=== PATIENT | female | born 1940 | race Caucasian/White ===

== ENCOUNTER 2017-07-08 10:31 | Emergency (ER) | payer MEDICARE, OTHER ==
[~2017-07-08] VITALS: Ht 165.1 cm; Wt 72.6 kg
[~2017-07-08 10:31] MED LIST: Hair, Skin & N1 EACH PO; LEVSOD150 PO; LISHYD2025 PO; LISI20 PO
[2017-07-08] MEDS ORDERED: CEFP500 PO (10:48)
[2017-07-08 11:14] LABS: BASOPHILS ABSOLUTE AUTO 0.03 K/mm3 (0.00-0.23); BASOPHILS PERCENT AUTO 0 % (0-2); EOSINOPHILS ABSOLUTE AUTO 0.14 K/mm3 (0.00-0.68); EOSINOPHILS PERCENT AUTO 2 % (0-6); Hematocrit 39.5 % (33.0-51.0); Hemoglobin 12.9 g/dL (11.5-16.0); IMMATURE GRAN ABSOLUTE AUTO 0.03 K/mm3 (0.00-0.10); IMMATURE GRAN PERCENT AUTO 0 % (0-1); LYMPHOCYTES ABSOLUTE AUTO 1.47 K/mm3 (0.84-5.20); LYMPHOCYTES PERCENT AUTO 20 % (21-46); MONOCYTES ABSOLUTE AUTO 0.51 K/mm3 (0.16-1.47); MONOCYTES PERCENT AUTO 7 % (4-13); Mean Corpuscular HGB Conc 32.7 g/dL (31.5-36.5); Mean Corpuscular Volume 92 fL (80-100); Mean Platelet Volume 9.8 fL (9.1-12.4); NEUTROPHILS ABSOLUTE AUTO 5.32 K/mm3 (1.96-9.15); NEUTROPHILS PERCENT AUTO 71 % (41-73); Platelet Count 195 K/mm3 (150-400); RDW Coefficient Variation 13.1 % (11.7-14.2); RDW Standard Deviation 44.4 fL (35.1-46.3)
[2017-07-08 11:51] LABS: Alanine Aminotransfer (ALT/SGP 36 U/L (12-78); Albumin, Blood 3.1 g/dL (3.4-5.0); Albumin/Globulin Ratio 0.9 (0.8-1.8); Alk Phos 62 U/L (50-136); Anion Gap 7 mmol/L (6-16); Aspartate Aminotrans (AST/SGOT 24 U/L (12-37); Bilirubin, Total 0.6 mg/dL (0.1-1.0); Blood Urea Nitrogen 20 mg/dL (8-24); CO2, Blood 33 mmol/L (21-32); Calcium, Blood 7.8 mg/dL (8.5-10.1); Chloride, Blood 101 mmol/L (98-108); Creatinine, Blood 1.05 mg/dL (0.40-1.00); Globulin, Blood 3.5 g/dL (2.2-4.0); Glomerular Filtration Rate 54 (60-); Glucose, Blood 142 mg/dL (70-99); Potassium, Blood 3.1 mmol/L (3.5-5.5); Sodium, Blood 141 mmol/L (136-145); Total Protein, Blood 6.6 g/dL (6.4-8.2); Troponin I <0.015 ng/mL (0.000-0.040)
[2017-07-08] MEDS ORDERED: K-Dur20 MEQ PO (13:16)
== END 2017-07-08 13:22 | disposition home or self-care (01) ==
LOC: ER 10:31
PROVIDERS: Emergency Medicine
DX: R55 Syncope and collapse (principal); E87.6 Hypokalemia; Z88.0 Allergy status to penicillin; Z79.899 Other long term (current) drug therapy
CPT/HCPCS: 71046; 80053; 84484; 85025; 93005; 93010; 99283

== ENCOUNTER 2018-08-08 14:03 | Inpatient (IN) | payer MEDICARE, OTHER ==
[~2018-08-08] VITALS: Ht 162.6 cm; Wt 76.8 kg
[~2018-08-08 14:03] MED LIST changes: +CEFP500 PO; +K-Dur20 MEQ PO
[2018-08-08 14:28] LABS: BASOPHILS ABSOLUTE AUTO 0.02 K/mm3 (0.00-0.23); BASOPHILS PERCENT AUTO 0 % (0-2); EOSINOPHILS PERCENT AUTO 0 % (0-6); Hematocrit 41.4 % (33.0-51.0); Hemoglobin 13.7 g/dL (11.5-16.0); IMMATURE GRAN ABSOLUTE AUTO 0.06 K/mm3 (0.00-0.10); IMMATURE GRAN PERCENT AUTO 1 % (0-1); LYMPHOCYTES ABSOLUTE AUTO 0.42 K/mm3 (0.84-5.20); LYMPHOCYTES PERCENT AUTO 6 % (21-46); MONOCYTES ABSOLUTE AUTO 0.66 K/mm3 (0.16-1.47); MONOCYTES PERCENT AUTO 9 % (4-13); Mean Corpuscular HGB 30.2 pg (26.0-34.0); Mean Corpuscular HGB Conc 33.1 g/dL (31.5-36.5); Mean Corpuscular Volume 91 fL (80-100); Mean Platelet Volume 9.7 fL (9.1-12.4); NEUTROPHILS ABSOLUTE AUTO 6.53 K/mm3 (1.96-9.15); NEUTROPHILS PERCENT AUTO 85 % (41-73); Platelet Count 141 K/mm3 (150-400); RDW Coefficient Variation 12.9 % (11.7-14.2); RDW Standard Deviation 43.3 fL (35.1-46.3); Red Blood Cell Count 4.53 M/mm3 (3.80-5.20); White Blood Cell Count 7.69 K/mm3 (4.00-11.30)
[2018-08-08 14:52] LABS: Albumin, Blood 3.2 g/dL (3.4-5.0); Albumin/Globulin Ratio 0.9 (0.8-1.8); Bilirubin, Total 0.4 mg/dL (0.1-1.0); Bun/Creatinine Ratio 14.5 (12.0-20.0); Calcium, Blood 7.3 mg/dL (8.5-10.1); Creatinine, Blood 1.17 mg/dL (0.40-1.00); Globulin, Blood 3.7 g/dL (2.2-4.0); Potassium, Blood 3.4 mmol/L (3.5-5.5); Total Protein, Blood 6.9 g/dL (6.4-8.2)
[2018-08-08 15:43] LABS: Source, Urine Catheter
[2018-08-08] MEDS ORDERED: LEVSOD125 PO (15:47)
[2018-08-08] MEDS ORDERED: AMLO5 PO (15:47)
[2018-08-08 15:51] LABS: Blood, Urine 4+ (Neg); Glucose Qualitative, Urine Neg (Neg); Ketones, Urine 2+ (Neg); Leukocyte Esterase, Urine 3+ (Neg); Nitrite, Urine Neg (Neg); Protein, Urine 3+ (Neg); Urobilinogen, Urine 1+ (Normal); pH, Urine 6.5 (5.0-8.0)
[2018-08-08 16:02] LABS: Bilirubin, Urine 2+ (Neg)
[2018-08-08 16:03] LABS: Appearance, Urine Hazy (Clear); Color, Urine Yellow (P-Yellow); Squamous Epithelial Cells Mod /hpf (Few)
[2018-08-08 16:04] LABS: Bacteria Mod /hpf; White Blood Cells, Urine 25-50 /hpf (0-5)
[2018-08-08 18:40] LABS: Troponin I 0.044 ng/mL (0.000-0.040)
[2018-08-08 18:41] LABS: Thyroid Stimulating Hormone <0.005 uIU/mL (0.360-4.800)
[2018-08-08 23:00] LABS: Adenovirus Not Detected (NOT DETECT); Bordetella pertussis Not Detected (NOT DETECT); Chlamydophila pneumoniae Not Detected (NOT DETECT); Coronavirus 229E Not Detected (NOT DETECT); Coronavirus HKU1 Not Detected (NOT DETECT); Coronavirus NL63 Not Detected (NOT DETECT); Coronavirus OC43 Not Detected (NOT DETECT); Human Metapneumovirus Not Detected (NOT DETECT); Human Rhinovirus/Enterovirus Not Detected (NOT DETECT); Influenza A Not Detected (NOT DETECT); Influenza A/2009-H1 Not Detected (NOT DETECT); Influenza A/H1 Not Detected (NOT DETECT); Influenza A/H3 Not Detected (NOT DETECT); Influenza B Not Detected (NOT DETECT); Mycoplasma pneumoniae Not Detected (NOT DETECT); Parainfluenza Virus 1 Not Detected (NOT DETECT); Parainfluenza Virus 2 Not Detected (NOT DETECT); Parainfluenza Virus 3 Not Detected (NOT DETECT); Parainfluenza Virus 4 Not Detected (NOT DETECT); Respiratory Syncytial Virus Not Detected (NOT DETECT)
[2018-08-09 04:16] LABS: BASOPHILS ABSOLUTE AUTO 0.01 K/mm3 (0.00-0.23); BASOPHILS PERCENT AUTO 0 % (0-2); EOSINOPHILS PERCENT AUTO 0 % (0-6); Hematocrit 40.3 % (33.0-51.0); Hemoglobin 13.2 g/dL (11.5-16.0); IMMATURE GRAN ABSOLUTE AUTO 0.03 K/mm3 (0.00-0.10); IMMATURE GRAN PERCENT AUTO 1 % (0-1); LYMPHOCYTES ABSOLUTE AUTO 0.76 K/mm3 (0.84-5.20); LYMPHOCYTES PERCENT AUTO 15 % (21-46); MONOCYTES ABSOLUTE AUTO 0.47 K/mm3 (0.16-1.47); MONOCYTES PERCENT AUTO 9 % (4-13); Mean Corpuscular HGB 30.5 pg (26.0-34.0); Mean Corpuscular HGB Conc 32.8 g/dL (31.5-36.5); Mean Corpuscular Volume 93 fL (80-100); Mean Platelet Volume 9.5 fL (9.1-12.4); NEUTROPHILS ABSOLUTE AUTO 3.88 K/mm3 (1.96-9.15); NEUTROPHILS PERCENT AUTO 75 % (41-73); Platelet Count 118 K/mm3 (150-400); RDW Standard Deviation 44.8 fL (35.1-46.3); Red Blood Cell Count 4.33 M/mm3 (3.80-5.20); White Blood Cell Count 5.15 K/mm3 (4.00-11.30)
[2018-08-09 04:53] LABS: Albumin, Blood 2.8 g/dL (3.4-5.0); Albumin/Globulin Ratio 0.8 (0.8-1.8); Bilirubin, Total 0.4 mg/dL (0.1-1.0); Bun/Creatinine Ratio 11.5 (12.0-20.0); Calcium, Blood 6.5 mg/dL (8.5-10.1); Creatinine, Blood 1.04 mg/dL (0.40-1.00); Globulin, Blood 3.4 g/dL (2.2-4.0); Total Protein, Blood 6.2 g/dL (6.4-8.2)
--- NOTE | 2018-08-09 06:43 | NUR ---
END OF SHIFT JOSE ASSUMED CARE OF PT @ 1900. ADMISSION ASSESMENT6 COMPLETED. PT HAS FLUIDS RUNNING, SEPSIS PROTOCOL FLUID ORDERS JUST ENTERED. PT NS TITRATED PER EMAR. 2300L NS GIVEN PER EMAR. FLUIDS NOW INFUSING AT 125ML/HR AND HAS CONTINUED TO INFUSE. PT'S SON AT BEDSIDE FOR MAJORITY OF NIGHT. BIG BUMP NOTED ON BACK OF PATIENTS HEAD, PT'S SON SAID PT FELL PRIOR TOP ADMISSION. DR OQUENDO CALLED REGARDING OBTAINING HEAD CT. CT COMPLETED, NEGATIVE FOR HEMORRHAGE. PT HAS SLEPT FOR MAJORITY OF NIGHT. VSS T/O SHIFT. PT HAS BEEN FEBRILE, MEDICATED WITH TYLENOL. FEVER REDUCED <100. PT HAS VOICED LITTLE COMPLAINT. YESTERDAY AM, 08/08/18. PT SPEAKS FONDLY OF LATE , APPEARS TO BE COPING WELL AT THIS TIME WITH LOSS. WILL CONTINUE TO MONITOR PT UNTIL SHIFT CHANGE.
[2018-08-10 05:04] LABS: BASOPHILS ABSOLUTE AUTO 0.01 K/mm3 (0.00-0.23); BASOPHILS PERCENT AUTO 0 % (0-2); EOSINOPHILS PERCENT AUTO 0 % (0-6); Hematocrit 39.2 % (33.0-51.0); Hemoglobin 12.9 g/dL (11.5-16.0); IMMATURE GRAN ABSOLUTE AUTO 0.02 K/mm3 (0.00-0.10); IMMATURE GRAN PERCENT AUTO 0 % (0-1); LYMPHOCYTES ABSOLUTE AUTO 0.72 K/mm3 (0.84-5.20); LYMPHOCYTES PERCENT AUTO 14 % (21-46); MONOCYTES ABSOLUTE AUTO 0.23 K/mm3 (0.16-1.47); MONOCYTES PERCENT AUTO 5 % (4-13); Mean Corpuscular HGB 29.9 pg (26.0-34.0); Mean Corpuscular HGB Conc 32.9 g/dL (31.5-36.5); Mean Corpuscular Volume 91 fL (80-100); Mean Platelet Volume 9.9 fL (9.1-12.4); NEUTROPHILS ABSOLUTE AUTO 4.06 K/mm3 (1.96-9.15); NEUTROPHILS PERCENT AUTO 81 % (41-73); Platelet Count 97 K/mm3 (150-400); RDW Coefficient Variation 13.1 % (11.7-14.2); RDW Standard Deviation 44.7 fL (35.1-46.3); Red Blood Cell Count 4.31 M/mm3 (3.80-5.20); White Blood Cell Count 5.04 K/mm3 (4.00-11.30)
[2018-08-10 05:26] LABS: Albumin, Blood 2.5 g/dL (3.4-5.0); Albumin/Globulin Ratio 0.8 (0.8-1.8); Bilirubin, Total 0.4 mg/dL (0.1-1.0); Bun/Creatinine Ratio 7.8 (12.0-20.0); Calcium, Blood 6.6 mg/dL (8.5-10.1); Creatinine, Blood 1.16 mg/dL (0.40-1.00); Potassium, Blood 2.6 mmol/L (3.5-5.5); Total Protein, Blood 5.5 g/dL (6.4-8.2); Troponin I 0.086 ng/mL (0.000-0.040)
--- NOTE | 2018-08-10 06:10 | NUR ---
PCU NOC SHIFT SUMMARY PATIENT ALERT AND ORIENTED AT TIMES T/O SHIFT. PATIENT CONFUSED INTERMITTENTLY WITH FEVERS. PATIENT MEDICATED PER EMAR AND USED COOLING MEASURES TO BRING FEVER DOWN WITH COOL WASH CLOTH AND FAN. PATIENT HYPERTENSIVE AND FEBRILE T/O SHIFT. HR REMAINED STABLE IN SINUS RHYTHM IN THE 80-90'S. NO ACUTE EVENTS BEYOND THE FEVERS AND HYPERTENSION NOTED. PATIENT SLEPT WITH SPOUSE (WHO PASSED) JACKET IN BED WITH HER. IV FLUIDS RUNNING T/O SHIFT PER EMAR. PATIENT HAVING SEEDY STOOLS X3 THIS SHIFT. BED ALARM ON, CALL LIGHT W/I REACH. WILL CONTINUE TO MONITOR AND GIVE REPORT TO DAYSHIFT RN.
--- NOTE | 2018-08-10 06:24 | NUR ---
MD NARANJO NOTIFIED OF LABS POTASSIUM 2.6 - ORDERS GIVEN TROPONIN 0.088 - NO NEW ORDERS AT THIS TIME
--- NOTE | 2018-08-10 12:04 | NUR ---
Echocardiogram completed.
--- NOTE | 2018-08-10 12:09 | NUR ---
Spiritual care visit conducted. I met with patient's daughter Caroline in the hallway outside patient's room. Caroline shared about of patient's spouse days ago, about patient's current medical issuess and about patient's limited scientology background. I entered patient's room with Caroline and step son Manuel, and knelt by patient while she was lying in bed resting. Patient is lathargic yet can carry on a brief conversation. Patient agreed that she has a little fight left and that she'll be ok. Patient was a bit tearful about her but is not inappropriate in her grief. I reinforced helpful attitudes and practices, explored sources of meaning, provided grief support and provided prayer. Patient responded well and showed signs of increased hope and of being comforted. I will continue to remain available to patient and family.
--- NOTE | 2018-08-10 13:04 | NUR ---
Assumed care of pt at approx 0700 from ALON Jang. Pt resting in bed, presenting with flat affect and appears lethargic. Pt opens eyes to sound but rests in bed with eyes closed. Family at bedside this shift. Pt orientedx4, denies chest pain and denies chest pressure. pt denies general pain at this time. Lungs clear and dim to bilat bases. Hypertensive and tachypneic and hyperthermic. Pt with elevated temp all night and continued elevated temp throughout this shift. Dr. Gibson aware. Elevated trop drawn this am. Serial trop ordered from Dr. Gibson, Echo ordered and EKG ordered per dr. Gibson. Echo completed and EKG completed. Cardiology consulted and awaiting Dr. Barnes to see pt. Pt not eating, see by dietary. Plan to encourage Pt to consume chocolate ensure. Pt becoming increasingly weaker this shift. At 0800, pt able to stand and walk to bathroom to void, as of 1100, pt states she is too weak to walk to bathroom and needs bsc.
--- NOTE | 2018-08-10 16:40 | NUR ---
Pt was apparently sleeping when I entered the room to administer her IVPB antibiotic. She awakened easily to gentle stimuli. Denies pain, denies difficulty breathing. STates, "I'm just tired." She closes her eyes readily, and appears to go back to sleep.
--- NOTE | 2018-08-10 16:42 | NUR ---
Shift Summary Pt with elevated troponin today. Cardiac work-up ordered by Dr. Gibson. Echo performed this AM, EKG done at 1100 and will be done again at 1705. Dr Barnes consulted and saw pt this morning. Stress test lexiscan ordered per Dr. Barnes and will be 1 day protocol on Thrusday, 08/12/18 d/t imaging system down on 08/11/18. Troponin trending down at this time. No c/o chest pain or pressure at this time. No c/o SOB. Pt very lethargic today. She does not open her eyes unless spoken to. Pt responds appropriately, has mild confusion intermittantly throughout shift. Pt with elevated temperature trending down. Cool therapy in place and pt tolerating well. Pt daughter at bedside from 0800 until 1500 today. Pt daughter would like to limit visitors who are not family d/t pt exhaustion. Nurses on PCU notified to ask any non-family visitors to visit a different time. Sign to see RN in place on door. ABX tx continued this shift. IV patent and infusing at this time. Will continue to monitor and update as appropriate until shift change.
[2018-08-11 04:38] LABS: Hematocrit 35.7 % (33.0-51.0); Hemoglobin 11.9 g/dL (11.5-16.0); Mean Corpuscular HGB 30.1 pg (26.0-34.0); Mean Corpuscular HGB Conc 33.3 g/dL (31.5-36.5); Mean Corpuscular Volume 90 fL (80-100); Mean Platelet Volume 10.9 fL (9.1-12.4); Platelet Count 85 K/mm3 (150-400); RDW Coefficient Variation 13.4 % (11.7-14.2); Red Blood Cell Count 3.95 M/mm3 (3.80-5.20); White Blood Cell Count 4.55 K/mm3 (4.00-11.30)
[2018-08-11 05:20] LABS: BAND PERCENT MAN 1 % (0-8); BASOPHILS PERCENT MAN 0 % (0-2); EOSINOPHILS PERCENT MAN 0 % (0-6); LYMPHOCYTES ABSOLUTE MAN 0.45 K/mm3 (0.84-5.20); LYMPHOCYTES PERCENT MAN 10 % (21-46); MONOCYTES ABSOLUTE MAN 0.09 K/mm3 (0.16-1.47); MONOCYTES PERCENT MAN 2 % (4-13); SEG NEUTROPHILS PERCENT MAN 87 % (41-73); TOTAL CELLS COUNTED 100
--- NOTE | 2018-08-11 06:52 | NUR ---
PCU NOC SHIFT SUMMARY PATIENT LETHARGIC T/O SHIFT, ANSWERING QUESTIONS YES OR NO INAPPROPRIATELY DUE TO LETHARGY. PATIENTS VSS - 2 LPM NC APPLIED TO PATIENT DUE TO DESATURATION IN TO 87% ON ROOM AIR. HR REMAINED IN NSR WITH NO ACUTE EVENTS NOTED. PATIENT DENIES PAIN T/O SHIFT. PATIENT FEBRILE T/O SHIFT - TREATED PER EMAR. WILL CONTINUE TO MONITOR AND REPORT TO DAYSHIFT RN.
[2018-08-11 09:39] LABS: Bun/Creatinine Ratio 13.4 (12.0-20.0); Calcium, Blood 6.4 mg/dL (8.5-10.1); Creatinine, Blood 1.34 mg/dL (0.40-1.00); Potassium, Blood 3.2 mmol/L (3.5-5.5)
--- NOTE | 2018-08-11 12:49 | NUR ---
Assumed care of pt at approx 0700 from LAON Herrera. Pt alert and oriented this morning. VSS and pt in no apparent sign of distress. pt states "is it Thursday?" pt reoriented to date, pt states she does not remember the past two days. Today, pt able to ambulate with assistance to bathroom. Pt with soiled depends x2 with seedy, loose stool. Skin care performed, linins and gown changed as needed. Pt down to imaging this am for repeat chest xray. Dr. Joetrate in with pt this morning, plan is to continue abx tx and keep cardiology involved in care. Stress test scheduled for tomorrow, 08/12. Multiple friends and family in this morning to visit with pt. Pt appropriate and with enough energy to visit in short bursts throughout morning.
--- NOTE | 2018-08-11 18:19 | NUR ---
No acute changes this shift. VSS. Pt appears to be improving compared to yesterday shift. Pt more alert and oriented today. Pt gradually became increasingly more tired and forgetful as shift progressed; sign placed on door for visitors to see RN before entering room to decrease traffic in room and allow pt to rest and sleep. pt remains oriented all shift, motor strength remained consistant, no signs of neurological changes present. Pt ate very little again this shift, but increasing PO fluid intake. Pt continued ABX tx. Ambulated to bathroom for each void. Pt with loose stool all shift, pt stool incont. skin cleanse and pericare performed after each void. Pt temp trending down. Pt likes her late husbands jacket to be placed over her chest at all times. Will continue to monitor and update as appropriate.
--- NOTE | 2018-08-11 19:20 | NUR ---
OPENING NOTE RECEIVED REPORT FROM ALONZO CHI AT THE BEDSIDE AND ASSUMED PT CARE. PT IS RESTING QUIETLY, OPENS EYES TO VOICE, DENIES COMPLAINTS AT THIS TIME AND STATES "I'M DOING BETTER TODAY". PARTICIPATES IN BEDSIDE REPORT. VSS, SEE ASSESSMENT FOR DETAILS. BED ALARM ON AND BELONGINGS IN REACH. WILL MONITOR AND CONTINUE PLAN OF CARE.
--- NOTE | 2018-08-12 01:30 | NUR ---
0130: RECEIVED REPORT FROM COMMERCIAL TECHNICIAN AND ASSUMED CARE OF PT. WHITE BOARD UPDATED, CALL LIGHT IN REACH.
[2018-08-12 05:18] LABS: Hematocrit 41.7 % (33.0-51.0); Hemoglobin 13.6 g/dL (11.5-16.0); Mean Corpuscular HGB 29.8 pg (26.0-34.0); Mean Corpuscular HGB Conc 32.6 g/dL (31.5-36.5); Mean Corpuscular Volume 91 fL (80-100); Mean Platelet Volume 11.4 fL (9.1-12.4); Platelet Count 84 K/mm3 (150-400); RDW Coefficient Variation 13.5 % (11.7-14.2); RDW Standard Deviation 46.2 fL (35.1-46.3); Red Blood Cell Count 4.56 M/mm3 (3.80-5.20)
[2018-08-12 05:55] LABS: Albumin, Blood 2.3 g/dL (3.4-5.0); Albumin/Globulin Ratio 0.7 (0.8-1.8); Bilirubin, Total 0.3 mg/dL (0.1-1.0); Bun/Creatinine Ratio 14.4 (12.0-20.0); Creatinine, Blood 1.11 mg/dL (0.40-1.00); Globulin, Blood 3.5 g/dL (2.2-4.0); Potassium, Blood 3.2 mmol/L (3.5-5.5); Total Protein, Blood 5.8 g/dL (6.4-8.2)
[2018-08-12 06:17] LABS: BAND PERCENT MAN 4 % (0-8); BASOPHILS PERCENT MAN 0 % (0-2); EOSINOPHILS PERCENT MAN 0 % (0-6); LYMPHOCYTES PERCENT MAN 17 % (21-46); MONOCYTES ABSOLUTE MAN 0.17 K/mm3 (0.16-1.47); MONOCYTES PERCENT MAN 3 % (4-13); NEUTROPHILS ABSOLUTE MAN 4.72 K/mm3 (1.96-9.15); SEG NEUTROPHILS PERCENT MAN 76 % (41-73); TOTAL CELLS COUNTED 100
--- NOTE | 2018-08-12 09:58 | NUR ---
The pt was taken down to imaging dept for pictures after the first portion of the stress test. She sounded wheezy audibly during the stand and transfer to sit in the wheelchair; upon return the audible wheezes had dissipated. During the activity she had no visible respiratory difficulty nor complaints of the same. She was encouraged to sit up in the recliner, but she declines, states that she is cold and would like to go back to bed. She is distant, withdrawn, and minimally conversant, although appropriate in her responses. However, she is slow to respond to simple commands at times, seeming "shell-shocked".
--- NOTE | 2018-08-12 13:12 | NUR ---
Assumed care of pt at approx 0700. Pt lethargic at first encounter, vss except tachypnea. O2 saturations 91% on RA. Pt in no apparent sign of distress. Pt opens eyes to verbal, but otherwise lays in bed with eyes closed. Pt minimally conversive today, does not open eyes unless instructed to. Pt slow to respond but responds to questions appropriately. No facial droop noted, no sudden weakness noted. Pt presents very withdrawn today. Pt states "I am tired". Encouraged pt to sit in recliner but pt refused. Encouraged pt to eat, but only consumed 3 small bites of cheese. Pt consumed 500 ml water PO. Pt ambulated to bathroom at approx 1150 with stated weakness, but steady gait accompanied by CLAIM ADJUSTER and this RN. Pt voided then states she was "too weak" to stand and walk back to bed. Pt then became limp, maintained consciousness, was able to state name and date of approrpiately and answer orientation questions appropriately. Pt followed directions appropriately when stated to "look up at me" and "open your eyes". pt wheeled back to bed via wheelchair accompanied by this RN, chargeback analyst, and CLAIM ADJUSTER. CBG assessed and was 110. VS as followed: 87% on RA, 110/57 bp, 76 hr, 98.8 temporal temp. Pt placed on 4L o2 with sat improvement to 95%. Dr Gibson notifed of event, Head CT w/o contrast ordered and obtained, 500cc bolus of NS ordered and given per orders. Will continue to monitor and update as appropriate
[2018-08-12 16:06] LABS: BASOPHILS ABSOLUTE AUTO 0.02 K/mm3 (0.00-0.23); BASOPHILS PERCENT AUTO 0 % (0-2); EOSINOPHILS PERCENT AUTO 0 % (0-6); Hematocrit 37.5 % (33.0-51.0); Hemoglobin 12.4 g/dL (11.5-16.0); Mean Corpuscular HGB Conc 33.1 g/dL (31.5-36.5); Mean Corpuscular Volume 91 fL (80-100); Mean Platelet Volume 10.6 fL (9.1-12.4); Platelet Count 79 K/mm3 (150-400); RDW Coefficient Variation 13.7 % (11.7-14.2); RDW Standard Deviation 46.4 fL (35.1-46.3); Red Blood Cell Count 4.14 M/mm3 (3.80-5.20)
[2018-08-12 16:10] LABS: IMMATURE GRAN ABSOLUTE AUTO 0.08 K/mm3 (0.00-0.10); IMMATURE GRAN PERCENT AUTO 1 % (0-1); LYMPHOCYTES ABSOLUTE AUTO 0.95 K/mm3 (0.84-5.20); LYMPHOCYTES PERCENT AUTO 14 % (21-46); MONOCYTES ABSOLUTE AUTO 0.28 K/mm3 (0.16-1.47); MONOCYTES PERCENT AUTO 4 % (4-13); NEUTROPHILS ABSOLUTE AUTO 5.27 K/mm3 (1.96-9.15); NEUTROPHILS PERCENT AUTO 80 % (41-73)
--- NOTE | 2018-08-12 18:48 | NUR ---
Pt recieved total of 1000L bolus (two 500L bolus) today for hypotension. Pt started on Levoquin, and mosley cath in place per dr. gibson orders. Pt bp improved to 133/63 and 88 pulse after second 500L bolus and after mosley cath placement. Pt still non conversational, still laying in bed with eyes closed, still very lethargic. Pt opens eyes at verbal command, and follows simple directions. Sometimes pt response is inapporpriate, for example, this RN asked pt for her and pt responded with her street address. This RN asked again, for her , and she responded appropriately and accurately. Dr Gibson aware of mentation change and BP change this shift. Daughter, Caroline, updated of pt condition at 1840. Caroline would like to be made aware of results from CT and stress test. Will continue to monitor and update as appropriate.
--- NOTE | 2018-08-13 00:21 | NUR ---
WHEN ASKED HOW SHE IS FEELING, SHE STATES, I DON'T KNOW, I GUESS THIS IS MY NEW NORMAL. NURSING STATED THAT THIS IS A NEW NORMAL, BUT IT IS OK TO MISS THE OLD NORMAL. TO THIS SHE SMILES AND REACHES OUT TO HOLD NURSINGS HAND. SAFETY MEASURES IN PLACE. WILL CONTINUE TO MONITOR.
[2018-08-13 04:02] LABS: Hematocrit 39.3 % (33.0-51.0); Mean Corpuscular HGB 29.7 pg (26.0-34.0); Mean Corpuscular HGB Conc 33.1 g/dL (31.5-36.5); Mean Corpuscular Volume 90 fL (80-100); Platelet Count 80 K/mm3 (150-400); RDW Coefficient Variation 13.4 % (11.7-14.2); RDW Standard Deviation 44.4 fL (35.1-46.3); Red Blood Cell Count 4.38 M/mm3 (3.80-5.20); White Blood Cell Count 5.51 K/mm3 (4.00-11.30)
--- NOTE | 2018-08-13 04:11 | NUR ---
REPOSITIONED FOR COMFORT. IS IN BETTER SPIRITS THIS AM. CALM AND COOPERATIVE. REACHES FOR NURSINGS HANDS TO HOLD. WHEN STATED THAT SHE APPEARS MORE VIBRANT THIS AM, SHE SAYS THAT SHE FEELS BETTER, BUT NOT WELL. NURSING PRAISED HER FOR HER ACCOMPLISHMENTS, SHE RESPONDS WITH SQUEEZING NURSINGS HANDS AND SMILING.
[2018-08-13 04:19] LABS: Alanine Aminotransfer (ALT/SGP 70 U/L (12-78); Albumin/Globulin Ratio 0.6 (0.8-1.8); Alk Phos 50 U/L (50-136); Anion Gap 8 mmol/L (6-16); Aspartate Aminotrans (AST/SGOT 119 U/L (12-37); Bilirubin, Direct 0.1 mg/dL (0.0-0.3); Bilirubin, Indirect 0.2 mg/dL (0.1-0.7); Bilirubin, Total 0.3 mg/dL (0.1-1.0); Blood Urea Nitrogen 14 mg/dL (8-24); Bun/Creatinine Ratio 13.2 (12.0-20.0); CO2, Blood 28 mmol/L (21-32); Calcium, Blood 6.7 mg/dL (8.5-10.1); Chloride, Blood 102 mmol/L (98-108); Creatinine, Blood 1.06 mg/dL (0.40-1.00); Globulin, Blood 3.4 g/dL (2.2-4.0); Glomerular Filtration Rate 53 (60-); Glucose, Blood 77 mg/dL (70-99); Phosphorus, Blood 2.5 mg/dL (2.5-4.9); Potassium, Blood 2.9 mmol/L (3.5-5.5); Sodium, Blood 138 mmol/L (136-145); Total Protein, Blood 5.4 g/dL (6.4-8.2)
[2018-08-13 05:41] LABS: BASOPHILS PERCENT MAN 0 % (0-2); EOSINOPHILS ABSOLUTE MAN 0.05 K/mm3 (0.00-0.68); EOSINOPHILS PERCENT MAN 1 % (0-6); LYMPHOCYTES ABSOLUTE MAN 0.66 K/mm3 (0.84-5.20); LYMPHOCYTES PERCENT MAN 12 % (21-46); MONOCYTES ABSOLUTE MAN 0.16 K/mm3 (0.16-1.47); MONOCYTES PERCENT MAN 3 % (4-13); NEUTROPHILS ABSOLUTE MAN 4.62 K/mm3 (1.96-9.15); SEG NEUTROPHILS PERCENT MAN 84 % (41-73); TOTAL CELLS COUNTED 100
--- NOTE | 2018-08-13 06:19 | NUR ---
LYING IN SEMI FOWLERS WITH EYES CLOSED. NO FURTHER CHANGES SINCE START OF SHIFT. DEINES FURTHER NEEDS OR WANTS AT THIS TIME. SPIRITS CONTINUE TO LIFT. SAFETY MEASURES IN PLACE. WILL GIVE HAND OFF TO ONCOMING SHIFT USING SBAR.
--- NOTE | 2018-08-13 09:00 | NUR ---
INITIAL ASSESSMENT: PT IS RESTING WITH EYES CLOSED, RESP E/U. DAUGHTER AT BEDSIDE. PT EASILY AWAKENS WITH VERBAL STIMULI. PT IS ALERT AND OX3. PT HAS FLAT AFFECT. PT REPORTS SHE IS HAVING A 4/10 PAIN ON HER BUTTOCKS. PT STATES SHE HAS BEEN HAVING ALOT OF DIARRHEA AND HER BOTTOM IS RAW. HRR, SR WITH PAC'S AND PVC'S PER TELEMETRY. LS DIM T/O. BIOX WNL ON 2L VIA NC. PT REPORTS DRY NPC. BT HYPERACTIVE, PT HAS BEEN HAVING WATERY DIARRHEA. PPP. NO EDEMA PRESENT AT THIS TIME. VSS. ULTRASOUND AT BEDSIDE AT THIS TIME. PT DENIES NEEDS, WILL CONTINUE TO MONITOR.
--- NOTE | 2018-08-13 10:30 | NUR ---
PT WAS ASSISTED TO DANGLE, PT STATES SHE IS FEELING, " A LITTLE LIGHT HEADED." PT SITTING ON THE EDGE OF THE BED FOR APPROX 3-4 MIN. PT APPLICATIONS PROJECT MANAGER TO ASSIST THIS RN AND PT TO STAND. PT WAS ABLE TO STAND FOR APPROX 5 SECONDS BEFORE SHE STATED SHE NEEDED TO "SIT DOWN SOON." PT ASSISTED TO SIT ON THE EDGE OF THE BED. VS WERE CHECKED AND BP DIDN'T DROP SIGNIFICANTLY, VS REMAINED WNL. PT ASSISTED TO LIE DOWN. LINENS WERE CHANGED AND BED BATH WAS GIVEN. PT DENIES FURTHER NEEDS AT THIS TIME. CALL LIGHT IN REACH.
--- NOTE | 2018-08-13 10:56 | NUR ---
Upon receiving a request from patient's RN, I entered patient's room. Patient shares about the loss of her , about her own health challenges and about her emotional struggles. I provided grief support and emotional support. I facilitaed a brief life review, established therapeutic alliance and provided prayer. Patient responded well and showed signs of increased hope. I also spent some time with patient's daughter, Caroline in the hallway just outside patient's room and allowed her some space to share her struggle and talk about the loss of her step father, her way of processing grief and the plan, moving forward, with the patient. I listened empathically, provided grief support and encouraged self care. I continue to remain available to patient and family.
--- NOTE | 2018-08-13 11:00 | NUR ---
ASSESSMENT IS UNCHANGED FROM EARLIER. PT WAS CLEANED UP EARLIER, PTS BUTTOCKS AND [place]A EXCORIATED. PT ENCOURAGED TO CALL US WHEN SHE HAS DIARRHEA SO THAT HER SKIN WON'T BE EXPOSED TO STOOL FOR LONG PERIODS OF TIME. WILL ASSESS FOR STOOL WITH HOURLY ROUNDING. VSS. DR. ALMONTETRATE AT THE BEDSIDE TO ASSESS PT AND TALK WITH FAMILY RE:PLAN OF CARE. MD ORDERED MEDICATIONS FOR DIARRHEA PER RN REQUEST. PT IS EATING SMALL AMOUNTS OF MEALS, PT ENCOURAGED TO INCREASE PO INTAKE. PT DENIES FURTHER NEEDS AT THIS TIME, CALL LIGHT IN REACH, WILL CONTINUE TO MONITOR.
--- NOTE | 2018-08-13 15:30 | NUR ---
ASSESSMENT UNCHAGED FROM EARLIER. PT WAS ABLE TO AMBULATE PT TO THE BATHROOM WITH NO SYNCOPAL EPISODES. VSS. MEDS GIVEN. PT DENIES OTHER NEEDS AT THIS TIME, CALL LIGHT IN REACH.
--- NOTE | 2018-08-13 18:38 | NUR ---
PT HAS DONE WELL TODAY. SHE HAS BEEN ABLE TO AMBULATE TO BATHROOM WITH ASSISTANCE WITHOUT A SYNCOPAL EPISODES. VSS T/O THE SHIFT. NO ACUTE CHANGES THIS SHIFT, WILL REPORT TO ONCOMING RN.
[2018-08-14 04:17] LABS: Hematocrit 36.9 % (33.0-51.0); Hemoglobin 12.1 g/dL (11.5-16.0); Mean Corpuscular HGB 29.4 pg (26.0-34.0); Mean Corpuscular HGB Conc 32.8 g/dL (31.5-36.5); Mean Corpuscular Volume 90 fL (80-100); Mean Platelet Volume 10.7 fL (9.1-12.4); Platelet Count 124 K/mm3 (150-400); RDW Coefficient Variation 13.9 % (11.7-14.2); RDW Standard Deviation 45.2 fL (35.1-46.3); Red Blood Cell Count 4.11 M/mm3 (3.80-5.20); White Blood Cell Count 5.77 K/mm3 (4.00-11.30)
[2018-08-14 04:41] LABS: Albumin, Blood 1.9 g/dL (3.4-5.0); Albumin/Globulin Ratio 0.5 (0.8-1.8); Bilirubin, Total 0.3 mg/dL (0.1-1.0); Bun/Creatinine Ratio 9.3 (12.0-20.0); Calcium, Blood 6.9 mg/dL (8.5-10.1); Creatinine, Blood 1.07 mg/dL (0.40-1.00); Globulin, Blood 3.5 g/dL (2.2-4.0); Potassium, Blood 3.1 mmol/L (3.5-5.5); Total Protein, Blood 5.4 g/dL (6.4-8.2)
[2018-08-14 05:19] LABS: BASOPHILS PERCENT MAN 0 % (0-2); EOSINOPHILS PERCENT MAN 0 % (0-6); LYMPHOCYTES % ATYPICAL MANUAL 1 % (0-0); LYMPHOCYTES ABSOLUTE MAN 0.86 K/mm3 (0.84-5.20); LYMPHOCYTES PERCENT MAN 14 % (21-46); MONOCYTES PERCENT MAN 7 % (4-13); SEG NEUTROPHILS PERCENT MAN 78 % (41-73); TOTAL CELLS COUNTED 100
--- NOTE | 2018-08-14 09:15 | NUR ---
INITIAL ASSESSMENT: PT IS RESTING IN BED WITH EYES CLOSED, EASILY AWAKENS WITH VERBAL STIMULI. PT IS ALERT AND OX3. PT REPORTS SHE IS HAVING MINIMAL PAIN ON HER BUTTOCKS. HRR. LS DIM WITH EXP WHEEZING, BIOX WNL ON 3L VIA NC. BT+, PT STATES SHE HASN'T HAD ANY DIARRHEA SINCE YESTERDAY. PPP. VSS. SOME AM MEDS GIVEN, PT GOT A PILL STUCK IN HER THROAT, PT WAS ABLE TO PASS PILL AND RECOVER NICELY. PT REQUESTED A BREAK FROM TAKING PILLS, I DISCUSSED WITH HER I WOULD GIVE HER A BREAK AND CHECK BACK IN ABOUT AN HOUR. ISTRATE IN TO SEE PATIENT, SEE NEW ORDERS. PT DENIES OTHER NEEDS AT THIS TIME. CALL LIGHT IN REACH.
--- NOTE | 2018-08-14 10:57 | NUR ---
PT TO WORK WITH PATIENT, PT REQUESTING TO SIT UP IN CHAIR. BED ALARM PLACED PER PT. WILL CONTINUE TO MONTIOR.
--- NOTE | 2018-08-14 15:23 | NUR ---
ASSUMED PATIENT CARE, PT RESTING, NO OTHER CONCERNS AT THIS TIME. BED IN LOW POSITION,C ALL LITEIN REACH, FRIEND AT BEDSIDE.
--- NOTE | 2018-08-14 18:33 | NUR ---
PT PLEASANT COOP DENIES PAIN. DAUGHTER AND FRIEND ALTERNATIVELY IN ROOM. PT MOSTLY RESTING THIS AFT. STATES FEELS IMPROVING SOME. NO OHTER CONCERNS AT THIS TIME. BED IN LOW POSITION,C ALL LITE IN REACH, CALLS APPROP
[2018-08-15 03:40] LABS: BASOPHILS ABSOLUTE AUTO 0.03 K/mm3 (0.00-0.23); BASOPHILS PERCENT AUTO 1 % (0-2); EOSINOPHILS ABSOLUTE AUTO 0.04 K/mm3 (0.00-0.68); EOSINOPHILS PERCENT AUTO 1 % (0-6); Hematocrit 38.8 % (33.0-51.0); Hemoglobin 12.9 g/dL (11.5-16.0); Mean Corpuscular HGB 29.5 pg (26.0-34.0); Mean Corpuscular HGB Conc 33.2 g/dL (31.5-36.5); Mean Corpuscular Volume 89 fL (80-100); Mean Platelet Volume 10.3 fL (9.1-12.4); Platelet Count 182 K/mm3 (150-400); RDW Coefficient Variation 13.3 % (11.7-14.2); RDW Standard Deviation 43.9 fL (35.1-46.3); Red Blood Cell Count 4.37 M/mm3 (3.80-5.20); White Blood Cell Count 6.22 K/mm3 (4.00-11.30)
[2018-08-15 03:44] LABS: IMMATURE GRAN ABSOLUTE AUTO 0.11 K/mm3 (0.00-0.10); IMMATURE GRAN PERCENT AUTO 2 % (0-1); LYMPHOCYTES ABSOLUTE AUTO 1.05 K/mm3 (0.84-5.20); LYMPHOCYTES PERCENT AUTO 17 % (21-46); MONOCYTES ABSOLUTE AUTO 0.48 K/mm3 (0.16-1.47); MONOCYTES PERCENT AUTO 8 % (4-13); NEUTROPHILS ABSOLUTE AUTO 4.51 K/mm3 (1.96-9.15); NEUTROPHILS PERCENT AUTO 73 % (41-73)
[2018-08-15 04:00] LABS: Albumin, Blood 1.9 g/dL (3.4-5.0); Albumin/Globulin Ratio 0.5 (0.8-1.8); Bilirubin, Total 0.6 mg/dL (0.1-1.0); Bun/Creatinine Ratio 7.1 (12.0-20.0); Calcium, Blood 7.2 mg/dL (8.5-10.1); Creatinine, Blood 0.99 mg/dL (0.40-1.00); Globulin, Blood 3.8 g/dL (2.2-4.0); Total Protein, Blood 5.7 g/dL (6.4-8.2)
--- NOTE | 2018-08-15 05:52 | NUR ---
SHIFT SUMMARY PT ALERT AND ORIENTED X 3 THROUGHOUT SHIFT. PT DENIED ANY UNMET NEEDS BUT DID HAVE SOME SADNESS AT TIMES. SHE REQUESTED RESIDENT HALL DIRECTOR OR PALLIATIVE CARE TO COME IN AND TALK WITH HER TODAY. PT WAS ABLE TO AMBULATE WITH ONE PERSON STANDBY. SHE HAD NO ACUTE CHANGES TO VITALS OR ASSESSMENTS. PT SLEPT T/O MAJORITY OF THE NIGHT AND DENIED ANY UNMET NEEDS. SHE DEMONSTRATED APPROPRIATE USE OF HER CALL LIGHT AND IT WAS LEFT WITHIN REACH. PT HAD NO ACUTE CHANGES TO HER ASSESSMENT SINCE INITIAL. SHE WILL CONTINUE TO BE MONITORED UNTIL HANDOFF TO DAYSHIFT RN.
[2018-08-15 09:57] LABS: Eosinophils-Raw #,Urine 0; White Blood Cells Urine 0-2 /hpf (0-5)
--- NOTE | 2018-08-15 11:02 | NUR ---
MAGNESIUM LEVEL DR GOODEN CALLED AND ORDERED STAT MAGNESIUM LEVEL. LAB LEVAL CALLED TO DR GOODEN PER HIS REQUEST. ORDERS RECEIVIED. CONTINUE POT.
--- NOTE | 2018-08-15 20:24 | NUR ---
1900 ASSUMED CARE, PATIENT LAYING IN BED W\O CONCERNS. SEE [facility] FOR FULL ASSESSMENT. CALL LIGHT IN REACH, BED IN LOW POSITION, PLANS FOR THIS SHIFT DISSCUSSED.
[2018-08-15 21:27] LABS: Magnesium, Blood 1.9 mg/dL (1.6-2.4); Potassium, Blood 3.4 mmol/L (3.5-5.5)
[2018-08-16 04:09] LABS: Hematocrit 38.2 % (33.0-51.0); Hemoglobin 12.6 g/dL (11.5-16.0); Mean Corpuscular HGB 30.1 pg (26.0-34.0); Mean Corpuscular Volume 91 fL (80-100); Mean Platelet Volume 9.8 fL (9.1-12.4); Platelet Count 234 K/mm3 (150-400); RDW Coefficient Variation 13.5 % (11.7-14.2); Red Blood Cell Count 4.19 M/mm3 (3.80-5.20); White Blood Cell Count 6.11 K/mm3 (4.00-11.30)
[2018-08-16 04:27] LABS: Alanine Aminotransfer (ALT/SGP 95 U/L (12-78); Albumin, Blood 1.9 g/dL (3.4-5.0); Albumin/Globulin Ratio 0.5 (0.8-1.8); Alk Phos 85 U/L (50-136); Anion Gap 5 mmol/L (6-16); Aspartate Aminotrans (AST/SGOT 85 U/L (12-37); Bilirubin, Total 0.5 mg/dL (0.1-1.0); Blood Urea Nitrogen 6 mg/dL (8-24); Bun/Creatinine Ratio 6.5 (12.0-20.0); CO2, Blood 37 mmol/L (21-32); Calcium, Blood 7.6 mg/dL (8.5-10.1); Chloride, Blood 95 mmol/L (98-108); Creatinine, Blood 0.92 mg/dL (0.40-1.00); Glomerular Filtration Rate >60 (60-); Glucose, Blood 107 mg/dL (70-99); Magnesium, Blood 1.8 mg/dL (1.6-2.4); Phosphorus, Blood 3.3 mg/dL (2.5-4.9); Potassium, Blood 3.5 mmol/L (3.5-5.5); Sodium, Blood 137 mmol/L (136-145); Total Protein, Blood 5.9 g/dL (6.4-8.2)
[2018-08-16 05:25] LABS: BASOPHILS PERCENT MAN 0 % (0-2); EOSINOPHILS PERCENT MAN 0 % (0-6); LYMPHOCYTES ABSOLUTE MAN 0.85 K/mm3 (0.84-5.20); LYMPHOCYTES PERCENT MAN 14 % (21-46); MONOCYTES ABSOLUTE MAN 0.67 K/mm3 (0.16-1.47); MONOCYTES PERCENT MAN 11 % (4-13); NEUTROPHILS ABSOLUTE MAN 4.58 K/mm3 (1.96-9.15); SEG NEUTROPHILS PERCENT MAN 75 % (41-73); TOTAL CELLS COUNTED 100
[2018-08-16 13:06] LABS: QUANTIFERON MITOGEN VALUE 1.58 IU/mL (.); QUANTIFERON NIL VALUE 0.12 IU/mL (.); QUANTIFERON TB1 AG VALUE 0.26 IU/mL (.); QUANTIFERON TB2 AG VALUE 0.24 IU/mL (.); QUANTIFERON-TB GOLD PLUS Negative (Negative)
--- NOTE | 2018-08-16 16:07 | NUR ---
Pt visit this afternoon. Pt reports that she is feeling a little better today. She reports that her appetite has slightly improved and today was the first day of eating in quite sometime. She reports that she is taking one day at a time and knows that she can work through the emotional difficulty of her 's passing. She reports that she has been sitting up in her chair for the last 30 minutes and she walked to the door today. Pt reports no concerns at this time. Spoke with Pt's bedside nurse Annie and she reports no concerns at this time. Palliative Care will remain available.
--- NOTE | 2018-08-16 17:32 | NUR ---
[facility] REPORT CALLED TO [facility] AT 1715. PT GETTING DRESSED TO GO. EVEING MEDICATIONS GIVEN. CONTINUE POT.
--- NOTE | 2018-08-16 18:51 | NUR ---
DISCHARGE PT DISCHARGED [facility]IA [facility] ACCOMPANIED BY ARCHIVES DIRECTOR. ALL BELONGINGS SENT WITH PT. CONTINUE POT.
[2018-08-18 09:13] LABS: ALDOS/RENIN RATIO <4.4 (0.0-30.0); ALDOSTERONE <1.0 ng/dL (0.0-30.0)
== END 2018-08-16 18:53 | DRG 871 ==
LOC: ER 14:03 → PCU 17:10
PROVIDERS: Internal Medicine; Internal Medicine Nephrology; ADMIT Family Medicine
DX: A41.9 Sepsis, unspecified organism (principal); J18.1 Lobar pneumonia, unspecified organism; J96.01 Acute respiratory failure with hypoxia; N39.0 Urinary tract infection, site not specified; K80.20 Calculus of gallbladder without cholecystitis without obstruction; E87.6 Hypokalemia; E03.9 Hypothyroidism, unspecified; E83.42 Hypomagnesemia; E83.51 Hypocalcemia; E86.0 Dehydration; I12.9 Hypertensive chronic kidney disease with stage 1 through stage 4 chronic kidney disease, or unspecified chronic kidney disease; N18.3 Chronic kidney disease, stage 3 (moderate); D69.6 Thrombocytopenia, unspecified; R74.8 Abnormal levels of other serum enzymes; R79.89 Other specified abnormal findings of blood chemistry
CPT/HCPCS: 36415; 70450; 71045; 71046; 76705; 76770; 78452; 80048; 80053; 81001; 82088; 82248; 82947; 83605; 83735; 84100; 84132; 84145; 84244; 84443; 84484; 85025; 86480; 87040; 87077; 87086; 87186; 87205; 87486; 87493; 87581; 87633; 87798; 93005; 93010; 93017; 93306; 96361; 96365; 96367; 97110; 97162; 97166; 97530; 97535; 99285-25; A9500; J0456; J0696; J1650; J1956; J2785; J3475; J3480; J7030; J7050; J7120

== ENCOUNTER 2024-01-01 10:36 | Emergency (ER) | payer MEDICARE, OTHER ==
[~2024-01-01] VITALS: Ht 165.1 cm; Wt 61.2 kg
[~2024-01-01 10:36] MED LIST changes: +AMLO5 PO; +LEVSOD125 PO
[2024-01-01 10:54] VITALS: BP 158/85
[2024-01-01] MEDS ORDERED: Triamcinolone acet. 0.5% Ointment 15 gm TOP ONE (11:40)
== END 2024-01-01 11:59 | disposition home or self-care (01) ==
LOC: ER 10:36
DX: T78.1XXA Other adverse food reactions, not elsewhere classified, initial encounter (principal); R60.0 Localized edema
CPT/HCPCS: 99283; A9270

== ENCOUNTER 2024-01-20 15:06 | Emergency (ER) | payer MEDICARE, OTHER ==
[~2024-01-20] VITALS: Ht 165.1 cm; Wt 65.8 kg
[2024-01-20] MEDS ORDERED: MethylPREDNISolone Sod Succ 125 MG Vial IV ONE (15:25)
[2024-01-20] MEDS ORDERED: Tranexamic Acid 100 ML IV ONE (15:25)
[2024-01-20 17:45] VITALS: BP 153/70
== END 2024-01-20 18:39 | disposition home or self-care (01) ==
LOC: ER 15:06
DX: T78.3XXA Angioneurotic edema, initial encounter (principal); I10 Essential (primary) hypertension
CPT/HCPCS: 96374; 96375; 99284-25; J2919